=== PATIENT | male | born 1980 | race Caucasian/White ===

== ENCOUNTER 2021-04-15 13:03 | Emergency (ER) | payer BC ==
[2021-04-15 14:04] LABS: Hemoglobin 14.3 gm/dl (12.5-18.0); Mean Cell Volume 87.9 fl (78-100); Mean Corpuscular Hemoglobin 29.9 pg (26-32); Mean Platelet Volume 10.3 fl (7.5-11.0); Platelet Count 158 K/mm3 (150-450); Red Blood Count 4.78 M/mm3 (4.1-5.6); Red Cell Distribution Width 12.5 % (11.5-14.0); White Blood Count 3.8 K/mm3 (4.0-10.5)
--- NOTE | 2021-04-15 14:23 | ERPHSYRPT ---
- History of Present Illness Time Seen by Provider: 04/15/21 13:09 Source: patient Exam Limitations: no limitations Patient Subjective Stated Complaint: pt here for sob and cough. pt was dx with covid 8 days ago, Triage Nursing Assessment: pt alert, resp easy, skin w/d/p, no cough at persent time, no edema , face mask in place Physician History: 41-year-old with history of hypertension, diabetes mellitus, unvaccinated against COVID-19, tested positive almost a week ago presented in the ER with worsening coughing spell and shortness of breath since morning. Patient was evaluated yesterday and received infusion outpatient. Reports having off-and-on low-grade fever with a T-max of 101. Reports getting short of breath with activity and sometimes at resting with oxygen saturations ranging around 93%. Also having some chest tightness wheezing along with body aches, headache and getting lightheaded. Timing/Duration: day(s) (8), constant, gradual onset, worse Cough Quality/Degree: moderate, dry cough Possible Cause: no prior episodes Modifying Factors: Improves With: rest. Worsens With: coughing, deep breath, e xertion Associated Symptoms: fever, chills, chest pain/soreness, cough, headache, lightheadedness, muscle aches, nasal congestion, shortness of breath Allergies/Adverse Reactions: No Known Drug Allergies Allergy (Unverified 04/15/21 13:19) Home Medications: Glimepiride 2 mg [Amaryl 2 MG] 2 mg PO DAILY 04/15/21 [History] Lisinopril/Hydrochlorothiazide [Lisinopril-Hctz 20-25 mg Tab] 1 ea DAILY 04/15/21 [History] Metformin HCl 500 mg [Glucophage 500 MG] 1 ea DAILY 04/15/21 [History] Simvastatin 20Mg [Zocor 20Mg] 1 ea DAILY 04/15/21 [History] Hx Tetanus, Diphtheria Vaccination/Date Given: No Hx Influenza Vaccination/Date Given: No Hx Pneumococcal Vaccination/Date Given: No Immunizations Up to Date: Yes Travel Risk - International Travel Have you traveled outside of the country in past 3 weeks: No - Coronavirus Screening Are you exhibiting any of the following symptoms?: Yes Symptoms: Fever, Cough: New Onset, Shortness of Breath Close contact with a COVID-19 positive Pt in past 14-21 Days: Yes - Vaccine Status Have you recieved a Covid-19 vaccination: No - Review of Systems Constitutional: Fever, Chills, Fatigue, Weakness Eyes: No Symptoms Ears, Nose, & Throat: Nose Congestion Respiratory: Cough, Dyspnea, Dyspnea on Exertion (VERA), Wheezing Cardiac: Chest Pain Abdominal/Gastrointestinal: No Symptoms Genitourinary Symptoms: No Symptoms Musculoskeletal: Myalgias Skin: No Symptoms Neurological: Dizziness, Headache Psychological: No Symptoms Endocrine: No Symptoms Hematologic/Lymphatic: No Symptoms Immunological/Allergic: No Symptoms - Past Medical History Pertinent Past Medical History: Yes Cardiac History: High Cholesterol, Hypertension Endocrine Medical History: Diabetes Type II - Past Surgical History Past Surgical History: Yes - Social History Smoking Status: Never smoker Exposure to second hand smoke: No Drug Use: none Patient Lives Alone: No - Nursing Vital Signs Nursing Vital Signs: Initial Vital Signs Respiratory Rate 22 04/15/21 13:04 O2 Sat by Pulse Oximetry 94 L 04/15/21 13:04 Pain Scale Pain Intensity 0 - Physical Exam General Appearance: no apparent distress, alert, anxiety Eye Exam: PERRL/EOMI, eyes nml inspection Ears, Nose, Throat Exam: moist mucous membranes, pharyngeal erythema Neck Exam: normal inspection, non-tender, supple, full range of motion, No meningismus Respiratory Exam: diminished breath sounds, wheezing Cardiovascular Exam: regular rate/rhythm, normal heart sounds Gastrointestinal/Abdomen Exam: soft, normal bowel sounds Back Exam: normal inspection, normal range of motion Extremity Exam: normal inspection, normal range of motion, pelvis stable Neurologic Exam: alert, oriented x 3, cooperative, 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 Skin Exam: normal color SpO2 Interpretation: normal SpO2: 94 O2 Delivery: Room Air - Course EKG Interpreted by Me: RATE (84), Sinus Rhythm, NORMAL AXIS, NORMAL INTERVALS, NORMAL QRS Ordered Tests: Active Orders 24 hr Category Date Time Status EKG-ER Only STAT Care 04/15/21 13:34 Active CHEST 1 VIEW (PORTABLE) Stat Exams 04/15/21 13:34 Completed BLOOD CULTURE Stat Lab 04/15/21 13:53 Received CBC W DIFF Stat Lab 04/15/21 13:53 Completed CMP Stat Lab 04/15/21 13:53 Completed D-DIMER QUANTITATIVE Stat Lab 04/15/21 13:15 Completed Lactic Acid Stat Lab 04/15/21 13:34 Completed MAGNESIUM Stat Lab 04/15/21 13:53 Completed Manual Differential NC Stat Lab 04/15/21 13:53 Completed NT PRO BNP Stat Lab 04/15/21 13:53 Completed TROPONIN Q3H Lab 04/15/21 13:53 Completed TROPONIN Q3H Lab 04/15/21 16:45 Ordered TROPONIN Q3H Lab 04/15/21 19:45 Ordered TROPONIN Q3H Lab 04/15/21 22:45 Ordered TROPONIN Q3H Lab 04/16/21 01:45 Ordered Lab/Rad Data: Laboratory Result Diagrams 04/15/21 13:53 04/15/21 13:53 Laboratory Results 04/15/21 04/15/21 04/15/21 Range/Units 13:53 13:53 13:53 WBC 3.8 L (4.0-10.5) K/mm3 RBC 4.78 (4.1-5.6) M/mm3 Hgb 14.3 (12.5-18.0) gm/dl Hct 42.0 (42-50) % MCV 87.9 (78-100) fl MCH 29.9 (26-32) pg MCHC 34.0 (32-36) g/dl RDW 12.5 (11.5-14.0) % Plt Count 158 (150-450) K/mm3 MPV 10.3 (7.5-11.0) fl Segmented Neutrophils 49 (36.-66.) % Lymphocytes (Manual) 39 (24-44) % Monocytes (Manual) 12 (0.0-12.0) % Platelet Estimate NORMAL (NORMAL) RBC Morphology NORMAL D-Dimer (215-500) ng/mL Sodium 132 L (137-145) mmol/L Potassium 3.8 (3.5-5.1) mmol/L Chloride 92 L (98-107) mmol/L Carbon Dioxide 25 (22-30) mmol/L Anion Gap 18.3 H (5-15) MEQ/L BUN 23 H (9-20) mg/dL Creatinine 1.05 (0.66-1.25) mg/dL Estimated GFR > 60.0 ML/MIN Glucose 128 H (74-106) mg/dL Lactic Acid (0.4-2.0) Calcium 8.6 (8.4-10.2) mg/dL Magnesium 1.9 (1.6-2.3) mg/dL Total Bilirubin 0.80 (0.2-1.3) mg/dL AST 38 (17-59) U/L ALT 31 (0-50) U/L Alkaline Phosphatase 43 (38-126) U/L Troponin I < 0.012 (0.000-0.034) ng/mL NT-Pro-B Natriuret Pep 13.6 (0-450) pg/mL Serum Total Protein 7.3 (6.3-8.2) g/dL Albumin 4.3 (3.5-5.0) g/dL 04/15/21 04/15/21 Range/Units 13:34 13:15 WBC (4.0-10.5) K/mm3 RBC (4.1-5.6) M/mm3 Hgb (12.5-18.0) gm/dl Hct (42-50) % MCV (78-100) fl MCH (26-32) pg MCHC (32-36) g/dl RDW (11.5-14.0) % Plt Count (150-450) K/mm3 MPV (7.5-11.0) fl Segmented Neutrophils (36.-66.) % Lymphocytes (Manual) (24-44) % Monocytes (Manual) (0.0-12.0) % Platelet Estimate (NORMAL) RBC Morphology D-Dimer 315 (215-500) ng/mL Sodium (137-145) mmol/L Potassium (3.5-5.1) mmol/L Chloride (98-107) mmol/L Carbon Dioxide (22-30) mmol/L Anion Gap (5-15) MEQ/L BUN (9-20) mg/dL Creatinine (0.66-1.25) mg/dL Estimated GFR ML/MIN Glucose (74-106) mg/dL Lactic Acid 1.4 (0.4-2.0) Calcium (8.4-10.2) mg/dL Magnesium (1.6-2.3) mg/dL Total Bilirubin (0.2-1.3) mg/dL AST (17-59) U/L ALT (0-50) U/L Alkaline Phosphatase (38-126) U/L Troponin I (0.000-0.034) ng/mL NT-Pro-B Natriuret Pep (0-450) pg/mL Serum Total Protein (6.3-8.2) g/dL Albumin (3.5-5.0) g/dL - Progress Progress: re-examined Air Movement: good Progress Note: 04/15/21 15:45 41-year-old with Covid positive who received monoclonal antibody infusion yesterday presented with increasing cough and shortness of breath. Patient oxygen saturation is around 96/97% on room air. No obvious difficulty breathing or distress. X-rays showed finding consistent with bilateral interstitial airspace disease/opacities without any consolidation. Negative work-up otherwise including EKG/troponin/D-dimer. Patient is very anxious. He is counseled. I would give him inhaler and Z-Dc to go home. Recommended outpatient follow-up. Discussed signs symptoms of worsening needing return to ER which he seems understanding. Blood Culture(s) Obtained: No Antibiotics given: Yes Counseled pt/family regarding: lab results, diagnosis, need for follow-up, rad results - Departure Departure Disposition: Home Clinical Impression: Pneumonia due to COVID-19 virus Condition: Stable Critical Care Time: No Referrals: DIA PATEL MD [Primary Care Provider] - Follow up/PCP as directed (In 2 days for reevaluation) Instructions: Cough, Adult (DC), Coronavirus Disease 2019 (COVID-19) (DC) Additional Instructions: Use inhaler as needed for shortness of breath. Continue with contact/droplet precautions until your current plan is over. Return to ER for increasing shortness of breath/persistent fevers/worsening cough/chest pain etc. Prescriptions: Albuterol 8 gm Mdi Hfa [Ventolin Hfa MDI] 8 gm IH Q4H #1 inh Azithromycin 250 mg [Zithromax 250 MG TABLET] 250 mg PO ZPACK #6 tablet
[2021-04-15 14:29] LABS: ALBUMIN 4.3 g/dL (3.5-5.0); ALKALINE PHOSPHATASE 43 U/L (38-126); ANION GAP 18.3 MEQ/L (5-15); BLOOD UREA NITROGEN 23 mg/dL (9-20); CHLORIDE 92 mmol/L (98-107); Calcium 8.6 mg/dL (8.4-10.2); Carbon Dioxide 25 mmol/L (22-30); Creatinine 1 1.05 mg/dL (0.66-1.25); EST GLOMERULAR FILTRATION RATE > 60.0 ML/MIN; Glucose 128 mg/dL (74-106); MAGNESIUM 1.9 mg/dL (1.6-2.3); NT PRO BNP 13.6 pg/mL (0-450); Potassium 3.8 mmol/L (3.5-5.1); SGOT/AST 38 U/L (17-59); SGPT/ALT 31 U/L (0-50); SODIUM 132 mmol/L (137-145); Total Protein 7.3 g/dL (6.3-8.2)
[2021-04-15 14:33] LABS: Lymphocytes 39 % (24-44); Monocyte 12 % (0.0-12.0); Neutrophils 49 % (36.-66.); Platelet Estimate NORMAL (NORMAL); Total Cells Counted 100
--- NOTE | 2021-04-15 14:40 | XRAY ---
Indication: Cough and short of breath. Comparison: None Portable chest demonstrates subtle bilateral mid to lower lung patchy interstitial alveolar opacities. Remaining heart, lungs, and bony thorax unremarkable.
[2021-04-15 15:59] VITALS: BP 114/69; PULSE 78; O2SAT 96
== END 2021-04-15 16:01 | disposition home or self-care (01) ==
LOC: ED 13:03
DX: U07.1 COVID-19 (principal); J12.82 Pneumonia due to coronavirus disease 2019; J12.81 Pneumonia due to SARS-associated coronavirus; I10 Essential (primary) hypertension; E11.8 Type 2 diabetes mellitus with unspecified complications; Z79.84 Long term (current) use of oral hypoglycemic drugs; R06.02 Shortness of breath; R05.9 Cough, unspecified; R50.9 Fever, unspecified; R51.9 Headache, unspecified; E78.5 Hyperlipidemia, unspecified
CPT/HCPCS: 36415; 71045; 80053; 83605; 83735; 83880; 84484; 85025; 85379; 87040; 93005; 99284